=== PATIENT | female | born 1985 | race Caucasian/White ===

== ENCOUNTER 2016-05-26 14:20 | Emergency (ER) | payer OTHER, BC ==
[2016-05-26 14:28] VITALS: BP 125/92; TEMP 98.1
--- NOTE | 2016-05-26 14:43 | EDPHY ---
H & P Stated Complaint: Fall on Ice - Left Rib/Elbow Pain. mult complaints Time Seen by Provider: 05/26/16 14:30 HPI/ROS: CHIEF COMPLAINT: Left elbow pain, left-sided rib pain HISTORY OF PRESENT ILLNESS: 30-year-old female presents emergency department complaining of left elbow and left-sided rib pain after a slip on ice today 3 hours prior to arrival. Patient reports she thinks she landed on her left elbow and then her chest landed on her elbow. Pain is anterior left-sided nipple line. Pain is worse with deep breaths, worse with movement. Patient is [id number]. She denies head strike, no neck pain, no loss of consciousness, she denies numbness or tingling in her arm. REVIEW OF SYSTEMS: A comprehensive 10 point review of systems is otherwise negative aside from elements mentioned in the history of present illness. Source: Patient Exam Limitations: Clinical condition - Personal History LMP (Females 10-55): Extended Cycle BCP/Inj Current Tetanus/Diphtheria Vaccine: Unsure Current Tetanus Diphtheria and Acellular Pertussis (TDAP): Unsure - Medical/Surgical History Hx Asthma: No Hx Chronic Respiratory Disease: Yes Hx Diabetes: No Hx Cardiac Disease: No Hx Renal Disease: No Hx Cirrhosis: No Hx Alcoholism: No Hx HIV/AIDS: No Hx Splenectomy or Spleen Trauma: No Other PMH: Bipolar, ADHD, COPD, Sleep Apnea, Catatonic Schitzophrenia- gets ECT twice weekly - Social History Smoking Status: Current every day smoker - Physical Exam Exam: Physical Exam Gen: Alert and Oriented, anxious HEENT: PERRL, moist mucous membranes NECK: No C-spine tenderness to palpation CV: regular rate and regular rhythm Chest wall: pin point tenderness left sided chest nipple line just below breast. No swelling, no ecchymosis. PULM: CTAB, no wheezes ABDOMEN: soft, non tender to palpation, BS present BACK: No CVA tenderness NEURO: Neurologically grossly intact EXTREMITIES: Left elbow with small superficial abrasion to medial elbow. Full active flexion, extension, pronation and supination of left elbow, 2+ radial pulses, full range of motion of left wrist, no snuffbox tenderness, sensation intact to light touch. SKIN: no rash or break in skin on exposed skin PSYCH: answers questions appropriately. Constitutional: Initial Vital Signs Temperature (C) 36.7 C 05/26/16 14:24 Heart Rate 120 H 05/26/16 14:24 Respiratory Rate 18 05/26/16 14:24 Blood Pressure 125/92 H 05/26/16 14:24 O2 Sat (%) 93 05/26/16 14:24 O2 Delivery Mode Room Air Allergies/Adverse Reactions: hydrocodone Allergy (Verified 05/26/16 14:22) Home Medications: Medication Instructions Recorded Adderall 10 MG (*) 05/26/16 Ambien 05/26/16 Clozaril (*) 05/26/16 Wellbutrin 100mg (*) 05/26/16 Medical Decision Making - Diagnostics Imaging: Left rib x-rays independently reviewed by me- Right ribs, 3 views- No definite acute left rib fracture is identified. A metal BB is placed over the site of pain over the lower left eighth rib area. Impression: Negative. Dictated By: Diego Carvajal MD Left elbow x-ray independently reviewed by me Findings: No fracture, effusion or dislocation is identified. Impression: Nothing acute identified. If symptoms persist, follow-up x-ray in 7-10 days would be useful. Dictated By: Diego Carvajal MD ED Course/Re-evaluation: 30-year-old presents with left elbow and left-sided chest pain after a slip and fall on ice prior to arrival. X-ray of left elbow and left rib series with PA chest are both negative for fracture, lungs are clear to auscultation. Patient is discharged with a sling for comfort. She is instructed to take ibuprofen every 8 hours with food for 3-5 days, cough and deep breathe frequently. The patient has a appointment with her primary care doctor tomorrow. She is given return precautions for worsening symptoms. Difficulty breathing, chest pain, any other questions or concerns. Differential Diagnosis: Diagnosis considered but not limited to fracture, dislocation, sprain, pulmonary contusion, rib contusion, rib fracture Departure - Departure Disposition: Home, Routine, Self-Care Clinical Impression: Left elbow contusion, Chest wall pain Condition: Good Instructions: Elbow Sprain (ED), Chest Wall Pain (ED) Additional Instructions: Rest, ice to your sore areas, take 600 mg of ibuprofen every 8 hours with food. Follow up with your primary care doctor for symptoms that are not improving. Wear your sling for comfort. Come out of the sling several times a day to bend and straighten your elbow. Return to the emergency department for any numbness or tingling in her arms, pain that is not controlled, shortness of breath, chest pain, any other concerns. Referrals: [place],. [Primary Care Provider] - As per Instructions
--- NOTE | 2016-05-26 15:05 | DX ---
Left Elbow, Three Views History: Pain post trauma. Fall. Findings: No fracture, effusion or dislocation is identified. Impression: Nothing acute identified. If symptoms persist, follow-up x-ray in 7-10 days would be use ful.
--- NOTE | 2016-05-26 15:08 | DX ---
Chest and left Ribs (3 views ) History: Pain post trauma, fall. Findings: PA chest - No evidence of pneumothorax, pleural effusion or pulmonary contusion. The medias tinum is not widened. No obvious acute left rib fracture is identified. There are old healed right fo urth through seventh rib fracture deformities. Right ribs, 3 views- No definite acute left rib fracture is identified. A metal BB is placed over the site of pain over the lower left eighth rib area. Impression: Negative.
[2016-05-26 15:12] VITALS: PULSE 116; RESP 20; O2SAT 96
== END 2016-05-26 15:45 | disposition home or self-care (01) ==
DX: S50.02XA Contusion of left elbow, initial encounter (principal); S29.9XXA Unspecified injury of thorax, initial encounter; J44.9 Chronic obstructive pulmonary disease, unspecified; F17.200 Nicotine dependence, unspecified, uncomplicated; W00.0XXA Fall on same level due to ice and snow, initial encounter; Y93.89 Activity, other specified